=== PATIENT | female | born 1965 | race Caucasian/White ===

== ENCOUNTER → 2019-10-24 | Outpatient (CLI) | payer OTHER ==
[~2019-10-24] MED LIST: E-Z-PAQUE 96% w/w SUSP 176GM BTL As Ordered ONE
--- NOTE | 2019-10-24 16:44 | REP ---
Examination Requested: SBFT Reason For Exam: Abdomen pain Small Bowel Follow Through The procedure was performed by STERLING Ruiz, under the direct supervision of Dr. Palmer. The images were reviewed with Dr. Palmer. The superior court clerk film shows no organomegaly or pathological masses. The intestinal gas pattern appears normal. There are surgical milena in the right upper quadrant. The patient is status post Annalise-en-Y surgery. The barium was administered and the barium column was followed through the small bowel to the level of the terminal ileum. Small bowel transit time was approximately 20 minutes. During fluoroscopy gentle palpation shows all loops are freely mobile and pliable. There are no fixed or angulated loops. The small bowel mucosal pattern is normal in course and caliber. There is no transition to suggest a partial small-bowel obstruction. Spot filming of the terminal ileum shows it to be unremarkable. Impression: 1. Unremarkable small bowel follow-through 0.5 minutes of fluoroscopy time was utilized for this procedure. Some fluoroscopic images are performed with last image hold technology. These images require no additional radiation. Reviewed by STERLING Zee 10/24/2019 04:33 P Electronically Signed by Kareem Palmer MD 10/24/2019 04:36 P
== END ==
LOC: M RAD 07:13
PROVIDERS: ATTEND Surgery
DX: R10.9 Unspecified abdominal pain (principal)

== ENCOUNTER → 2020-08-28 | Outpatient (REF) | payer OTHER | LOC: M LAB REF 10:07 | PROVIDERS: ATTEND Physician Assistant | DX: L82.0 Inflamed seborrheic keratosis (principal) ==